=== PATIENT | male | born 1985 | race American Indian/Alaskan Native ===

== ENCOUNTER 2018-04-01 22:53 | Emergency (ER) | payer BC, OTHER ==
[~2018-04-01] VITALS: Ht 185.4 cm; Wt 130.2 kg
[~2018-04-01 22:53] MED LIST: 12 HOUR NASAL R15 ML NAS; FAMOTIDINE20 MG PO; HYDROCODONE-AC473 ML PO; LORATADINE10 MG PO; MECLIZINE HCL25 MG PO; NASAL DECONGEST30 MG PO; NORCO 5-325 TA1 EACH PO; PAIN RELIEF500 M1 PO; PREDNISONE20 MG PO; RANITIDINE HCL150 MG PO; ZYRTEC10 MG PO
--- NOTE | 2018-04-02 17:26 | EKG ---
[facility] [address] [facility] [place] [address] Signed Sinus rhythm with premature atrial complexes Rightward axis Borderline ECG No previous ECGs available Confirmed by STEFANIE HIDALGO MD ([id number] on 04/02/2018 5:26:05 PM Electronically Signed By: STEFANIE HIDALGO MD 04/02/18 1726 PATIENT NAME: HEATHER CHARLES Electrocardiogram DATE OF : 81 PHYSICIAN: STEFANIE HIDALGO MD REPORT #: [id number] REPORT IS CONFIDENTIAL AND NOT TO BE RELEASED WITHOUT AUTHORIZATION
== END 2018-04-02 01:05 | disposition home or self-care (01) ==
LOC: ED 22:53
DX: R20.2 Paresthesia of skin (principal); D72.829 Elevated white blood cell count, unspecified; F17.200 Nicotine dependence, unspecified, uncomplicated; Z91.02 Food additives allergy status
CPT/HCPCS: 71046; 80053; 83735; 84484; 85025; 85610; 85730; 93005; 93010; 99283

== ENCOUNTER 2022-11-29 17:51 | Emergency (ER) | payer BC, OTHER ==
[~2022-11-29] VITALS: Ht 185.4 cm; Wt 147.9 kg
== END 2022-11-29 22:48 | disposition home or self-care (01) ==
LOC: ED 17:51
DX: R51.9 Headache, unspecified (principal); L50.9 Urticaria, unspecified; F17.200 Nicotine dependence, unspecified, uncomplicated; Z88.8 Allergy status to other drugs, medicaments and biological substances
CPT/HCPCS: 36415; 70450; 80053; 85025; 96374; 96375; 99284-25; J0780; J1200; J7121

== ENCOUNTER 2023-10-28 14:45 | Emergency (ER) | payer BC, OTHER ==
[~2023-10-28] VITALS: Ht 185.4 cm; Wt 148.4 kg
[2023-10-28 15:17] LABS: BASOPHILS 0.8 % (0-2); EOSINOPHILS 2.2 % (0-6); HEMATOCRIT 43.7 % (35.0-50.0); HEMOGLOBIN 13.8 g/dL (12.0-18.0); LYMPHOCYTES 16.1 % (24-44); MCH 24.6 (27-36); MCHC 31.6 g/dl (30-36); MONOCYTES 3.8 % (0-12); NEUTROPHILS 77.1 % (39-80); PLATELET COUNT 267 K/uL (140-440); RBC 5.61 M/ul (4.3-5.7)
[2023-10-28 15:33] LABS: ALBUMIN 2.8 g/dL (3.4-5.0); ALBUMIN/GLOBULIN RATIO 0.62 (1.1-2.4); BILIRUBIN, TOTAL 0.2 ng/dL (0.2-1.0); BUN/CREATININE RATIO 6.86 (6.0-28.6); CALCIUM 8.1 mg/dL (8.5-10.1); CREATININE, SERUM 1.02 mg/dL (0.70-1.30); PROTEIN, TOTAL 7.3 g/dL (6.4-8.2)
[2023-10-28] MEDS ORDERED: TRAZODONE HCL50 MG PO (16:18)
[2023-10-28] MEDS ORDERED: CITALOPRAM HBR10 MG PO (16:18)
[2023-10-28] MEDS ORDERED: PRAZOSIN HCL1 MG PO (16:18)
[2023-10-28 16:40] LABS: BILIRUBIN, URINE NEGATIVE (negative); BLOOD/HGB, URINE NEGATIVE (Negative); KETONE, URINE NEGATIVE (Negative); LEUK ESTERASE, URINE NEGATIVE (negative); NITRITE, URINE NEGATIVE (negative)
[2023-10-28] MEDS ORDERED: ONDANSETRON ODT4 MG PO (17:45)
[2023-10-28] MEDS ORDERED: PRILOSEC OTC20 MG PO (17:45)
[2023-10-28 18:10] VITALS: BP 123/75
== END 2023-10-28 18:14 | disposition home or self-care (01) ==
LOC: ED 14:45
PROVIDERS: Emergency Medicine
DX: K29.90 Gastroduodenitis, unspecified, without bleeding (principal); D72.829 Elevated white blood cell count, unspecified; K76.0 Fatty (change of) liver, not elsewhere classified; F17.200 Nicotine dependence, unspecified, uncomplicated; E66.9 Obesity, unspecified; Z91.011 Allergy to milk products; Z79.899 Other long term (current) drug therapy
CPT/HCPCS: 36415; 74177; 76705; 80053; 81003; 83690; 85025; 96375; 99284-25; J1885; J2405; Q9967

== ENCOUNTER 2025-06-10 19:18 | Emergency (ER) | payer BC, OTHER ==
[~2025-06-10] VITALS: Ht 182.9 cm; Wt 136.0 kg
[~2025-06-10 19:18] MED LIST changes: +CITALOPRAM HBR10 MG PO; +ONDANSETRON ODT4 MG PO; +PRAZOSIN HCL1 MG PO; +PRILOSEC OTC20 MG PO; +TRAZODONE HCL50 MG PO
[2025-06-10] MEDS ORDERED: diazePAM 10 MG/2 ML SYR IM ONE (19:45)
[2025-06-10] MEDS ORDERED: KETOROLAC TROMETHAMINE 60 MG/2 ML VIAL IM ONE (19:45)
[2025-06-10] MEDS ORDERED: diazePAM 10 MG/2 ML SYR IV ONE (20:00)
[2025-06-10] MEDS ORDERED: KETOROLAC TROMETHAMINE 30 MG/ML VIAL IV ONE (20:00)
[2025-06-10] MEDS ORDERED: DEXAMETHASONE SOD PHOS 10 MG/ML VIAL IV ONE (20:00)
[2025-06-10] MEDS ORDERED: HYDROCODON-ACE1 EA10 PO (20:56)
[2025-06-10] MEDS ORDERED: LYRICA75 MG PO (20:56)
[2025-06-10] MEDS ORDERED: HYDROCODONE BIT/ACETAMINOPHEN 5/325 MG 1 TAB HOME.PACK PO ONE (21:15)
[2025-06-10] MEDS ORDERED: methylPREDNISolone 4 MG HOME.PACK PO ONE (21:15)
[2025-06-10] MEDS ORDERED: PREGABALIN 75 MG CAP PO ONE (21:15)
[2025-06-10 21:33] VITALS: BP 128/78
== END 2025-06-10 21:34 | disposition home or self-care (01) ==
LOC: ED 19:18
DX: M48.061 Spinal stenosis, lumbar region without neurogenic claudication (principal); M54.16 Radiculopathy, lumbar region; F17.200 Nicotine dependence, unspecified, uncomplicated; Z91.011 Allergy to milk products; Z79.899 Other long term (current) drug therapy
CPT/HCPCS: 72131; 96374; 96375; 99283-25; A9270; J1100; J1885; J3360